=== PATIENT | female | born 1995 | race Caucasian/White ===

== ENCOUNTER → 2024-07-02 14:07 | Outpatient (REF) | payer OTHER, SELFPAY | LOC: HWRAD 14:07 | PROVIDERS: ATTENDING PHYSICIAN Nurse Practitioner Family; FAMILY PHYSICIAN Internal Medicine | DX: Z34.90 Encounter for supervision of normal pregnancy, unspecified, unspecified trimester (principal) | CPT/HCPCS: 76801 ==

== ENCOUNTER → 2024-07-23 08:40 | Outpatient (REF) | payer OTHER, SELFPAY | LOC: PNTC 08:40 | PROVIDERS: ATTENDING PHYSICIAN Student in an Organized Health Care Education/Training Program | DX: O99.210 Obesity complicating pregnancy, unspecified trimester (principal); Z36.0 Encounter for antenatal screening for chromosomal anomalies; Z36.82 Encounter for antenatal screening for nuchal translucency | CPT/HCPCS: 76801; 76813 ==

== ENCOUNTER → 2024-09-12 08:56 | Outpatient (REF) | payer OTHER, SELFPAY | LOC: PNTC 08:56 | PROVIDERS: ATTENDING PHYSICIAN Student in an Organized Health Care Education/Training Program | DX: O99.210 Obesity complicating pregnancy, unspecified trimester (principal) | CPT/HCPCS: 76811 ==

== ENCOUNTER → 2024-10-28 07:50 | Outpatient (REF) | payer OTHER, SELFPAY | LOC: PNTC 07:50 | PROVIDERS: ATTENDING PHYSICIAN Student in an Organized Health Care Education/Training Program | DX: O99.210 Obesity complicating pregnancy, unspecified trimester (principal) | CPT/HCPCS: 76816 ==

== ENCOUNTER → 2024-12-16 08:00 | Outpatient (REF) | payer OTHER, SELFPAY | LOC: PNTC 08:00 | PROVIDERS: ATTENDING PHYSICIAN Student in an Organized Health Care Education/Training Program | DX: O99.210 Obesity complicating pregnancy, unspecified trimester (principal) | CPT/HCPCS: 76816 ==

== ENCOUNTER 2025-01-30 19:01 | Inpatient (IN) | payer OTHER, SELFPAY ==
[2025-01-30 19:47] VITALS: BP 130/83; BMI 38.1
[2025-01-30 21:03] LABS: % Basophils 0.4 % (0-2); % Eosinophils 0.9 % (0-6); % Immature Granulocytes 1.6 % (0-0.5); % Lymphocytes 16.3 % (20.5-51.1); % Monocytes 10.9 % (1.7-9.3); % Neutrophils 69.9 % (42.2-75.2); Absolute Basophils 0.1 10^3/uL (0-0.2); Absolute Eosinophils 0.2 10^3/uL (0-0.7); Absolute Immature Granulocytes 0.3 10^3/uL (0-0.05); Absolute Lymphocytes 2.7 10^3/uL (1.2-3.4); Absolute Monocytes 1.8 10^3/uL (0.1-0.6); Absolute Neutrophils 11.6 10^3/uL (1.4-6.5); Hematocrit 32.9 % (37.0-47.0); Mean Corp Hgb Conc. 33.4 g/dL (33.0-37.0); Mean Corpuscular Hgb 26.4 pg (27.0-31.0); Mean Corpuscular Volume 78.9 fL (81.0-99.0); Mean Platelet Volume 11.6 fL (7.4-10.4); Nucleated Red Blood Cells % 0 %; Platelet Count 257 10^3/uL (130-400); Red Blood Cell Count 4.17 10^6/uL (4.20-5.40); Red Cell Dist. Width 14.2 % (11.5-14.5); White Blood Cell Count 16.6 10^3/uL (4.8-10.8)
[2025-01-30] MEDS: CYTOTEC 50 MICROGRAM VAG (21:53)
[2025-01-30] MEDS: CYTOTEC PO (23:43)
[2025-01-31] MEDS: LR 1000 IV ×4 (00:19→20:21)
[2025-01-31] MEDS: CYTOTEC 50 MICROGRAM PO (02:47)
[2025-01-31] MEDS: CYTOTEC PO ×4 (05:15→17:41)
[2025-01-31] MEDS: TUMS CHEWABLE TABLET 400 MG PO ×2 (07:22→23:11)
[2025-01-31] MEDS: PITOCIN 30 UNITS/NSS 500 ML IV (09:14)
[2025-01-31] MEDS: STADOL 1 MG IV (10:52)
[2025-01-31] MEDS: SUBLIMAZE 100 MCG EPIDURAL (13:35)
[2025-01-31] MEDS: FENTANYL/BUPIVACAINE 100 EPIDURAL ×2 (13:35→22:01)
[2025-01-31] MEDS: ZOFRAN 4 MG IV (20:30)
[2025-02-01] MEDS: LR 1000 IV ×2 (02:15→09:00)
[2025-02-01] MEDS: FENTANYL/BUPIVACAINE 100 EPIDURAL (05:26)
[2025-02-01] MEDS: PITOCIN 30 UNITS/NSS 500 ML IV (11:34)
[2025-02-01 12:07] LABS: Cord ABG B.E. - POC -11.7 mmol/L; Cord ABG HCO3 - POC 16 mmol/L; Cord ABG O2 Sat % - POC 20.4 %; Cord ABG pCO2 - POC 41 mmHg; Cord ABG pO2 - POC 19 mmHg
[2025-02-01 12:12] LABS: Cord VBG B.E. - POC -7.1 mmol/L; Cord VBG HCO3 - POC 19 mmol/L; Cord VBG O2 Sat % - POC 27.2 %; Cord VBG pCO2 - POC 38 mmHg; Cord VBG pO2 - POC 20 mmHg
[2025-02-01] MEDS: SENOKOT-S 1 TABLET PO (15:05)
[2025-02-01] MEDS: MOTRIN 600 MG PO ×2 (15:06→21:26)
[2025-02-01] MEDS: TYLENOL 650 MG PO ×2 (15:06→21:26)
[2025-02-02] MEDS: TYLENOL 650 MG PO ×3 (05:28→17:07)
[2025-02-02] MEDS: MOTRIN 600 MG PO ×3 (05:28→17:07)
[2025-02-02 05:34] LABS: Hematocrit 28.9 % (37.0-47.0); Hemoglobin 9.3 g/dL (12.0-16.0)
[2025-02-02] MEDS: FEOSOL 325 MG PO (10:56)
[2025-02-02] MEDS: SENOKOT-S 1 TABLET PO (10:56)
[2025-02-02] MEDS: PRENATAL PLUS 1 TABLET PO (10:56)
[2025-02-03] MEDS: M-M-R II 0.5 ML SC (08:43)
[2025-02-03] MEDS: SENOKOT-S 1 TABLET PO (08:44)
[2025-02-03] MEDS: FEOSOL 325 MG PO (08:44)
[2025-02-03] MEDS: PRENATAL PLUS 1 TABLET PO (08:44)
[2025-02-03] MEDS: MOTRIN 600 MG PO (08:46)
[2025-02-04 14:06] LABS: Syphilis/T. pallidum Ab Reflex Negative (Negative)
== END 2025-02-03 11:57 | disposition home or self-care (01) | DRG 807 ==
LOC: LDRP 19:01
PROVIDERS: Obstetrics & Gynecology; ADMITTING PHYSICIAN Obstetrics & Gynecology
PROC: 3E0P7VZ Introduction of Hormone into Female Reproductive, Via Natural or Artificial Opening (ICD-10-PCS; 2025-01-30)
PROC: 3E033VJ Introduction of Other Hormone into Peripheral Vein, Percutaneous Approach (ICD-10-PCS; 2025-01-30)
PROC: 0KQM0ZZ Repair Perineum Muscle, Open Approach (ICD-10-PCS; 2025-02-01)
PROC: 10E0XZZ Delivery of Products of Conception, External Approach (ICD-10-PCS; 2025-02-01)
PROC: 0W8NXZZ Division of Female Perineum, External Approach (ICD-10-PCS; 2025-02-01)
DX: O48.0 Post-term pregnancy (principal); Z37.0 Single live birth; Z3A.40 40 weeks gestation of pregnancy; O70.1 Second degree perineal laceration during delivery
CPT/HCPCS: 88307; 85014; 85018; 85025; 86780; 86850; 86900; 86901